=== PATIENT | male | born 1965 | race Caucasian/White ===

== ENCOUNTER 2018-04-18 08:47 | Day surgery (SDC) | payer BC ==
[~2018-04-18] VITALS: Ht 177.8 cm; Wt 100.0 kg
--- NOTE | ~2018-04-18 | OP ---
PATIENT NAME: ANDREA CHAWLA MEDICAL RECORD: [id number] :61 LOCATION:D.END ADMISSION DATE: SURGEON: DANY GAR MD DATE OF OPERATION: 04/18/2018 PREOPERATIVE DIAGNOSES: 1. Hematochezia due to bleeding internal hemorrhoids. 2. History of [place] esophagus in need of surveillance upper endoscopy. POSTOPERATIVE DIAGNOSES: 1. Hematochezia due to bleeding internal hemorrhoids. 2. History of [place] esophagus in need of surveillance upper endoscopy. 3. Moderately sized hiatal hernia. PROCEDURE: 1. Esophagogastroduodenoscopy with antral and distal esophageal biopsies. 2. Flexible proctoscopy with internal hemorrhoidal banding times 2. SURGEON: Dany Gar MD AUTO APPRENTICE MECHANIC: None. BLOOD LOSS: Minimal. ANESTHESIA: IV sedation. COMPLICATIONS: None. The risks, possible complication, and alternatives to the procedure were explained to the patient. He elects to proceed. ENDOSCOPIC COURSE: The patient was conveyed to the endoscopy suite electively on 04/18/2018. IV sedation was induced by the anesthesia staff. A bite block was inserted. A gastroscope was inserted into the mouth. It was advanced easily into the hypopharynx. The esophagus was easily intubated as were the stomach and duodenum. Upon withdrawal, retroflexed and angulus views were obtained. Antral biopsies were obtained. Distal esophageal biopsies were obtained. The endoscope was then withdrawn under direct vision. The patient was then turned 180 degrees and placed in the Paez position. A digital rectal examination was performed. 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 A gastroscope was inserted into the anus. A retroflex view was obtained and it revealed 2 enlarged internal hemorrhoids. The endoscope was then withdrawn. A 6 shooter floor cashier was then applied to the gastroscope. It was reinserted through the anus and retroflexed. Two bandings were performed on the 2 most prominent internal hemorrhoids. I then unretroflexed the scope and removed it under direct vision. I will see the patient in my office in 2-3 weeks to review the results of the biopsies. I will plan for his next surveillance endoscopy with biopsies to take place in 2 years. TRANSINT:[id number] Voice Confirmation ID: [id number] DOCUMENT ID: [id number] OPERATIVE REPORT [id number] DENTONDANY ALMARAZ MD at 1023 CC: [id number] DICTATION DATE: 04/18/18 1129 [facility]: 04/18/18 1311 [facility] [place] 04/18/18 [id number] [place] [address]
[~2018-04-18 08:47] MED LIST: ASPIRIN325 MG PO; AUGMENTIN 500-11 TA1; CIALIS5 MG PO; FLOVENT DI50 MCG/DIS; HYOSCYAMINE0.125 M1; LIPITOR40 MG PO; LISINOPRIL10 MG PO; NEXIUM40 MG PO; NITROSTAT0.4 MG SL; SYNTHROID50 MCG PO
[2018-04-18 09:03] LABS: HEMATOCRIT 43.5 % (42.0-54.0); HEMOGLOBIN 15.2 g/dL (13.5-17.5); MCH 30.8 pg (26.0-34.0); MCHC 34.9 g/dL (31.0-37.0); MCV 88.1 fL (80.0-100.0); MEAN PLATELET VOLUME 10.7 fL (7.4-10.4); RBC 4.94 10x6/uL (4.20-6.10); RDW 12.9 % (11.5-14.5); WBC 4.9 10x3/uL (4.8-10.8)
[2018-04-18 09:54] VITALS: BP 112/70; Ht 177.8 cm; Wt 100.0 kg
== END 2018-04-18 12:35 | disposition home or self-care (01) ==
LOC: D.ENDO 08:47
PROVIDERS: Anesthesiology
DX: K22.70 Barrett's esophagus without dysplasia (principal); K44.9 Diaphragmatic hernia without obstruction or gangrene; K64.8 Other hemorrhoids